=== PATIENT | female | born 1985 | race American Indian/Alaskan Native ===

== ENCOUNTER 2018-03-09 12:07 | Emergency (ER) | payer SELFPAY ==
[2018-03-09] MEDS ORDERED: PERCOCET 5/325 PO ONE (14:27)
--- NOTE | 2018-03-09 14:38 | Emergency Department Report ---
- General Chief complaint: Wound/Laceration Stated complaint: BOIL Time Seen by Provider: 03/09/18 14:04 Source: patient Mode of arrival: Ambulatory Limitations: No Limitations - History of Present Illness Initial comments: 32-year-old -[place] female comes in for complaint of abscess under her right breast that's been there for 3-4 days. Patient reports her pain is 8 out of 10. She reports that she is diabetic and also requesting a refill on her metformin. complaint: abscess/boil -: days(s) (3-4 ) Location: chest (under right breast) Severity: severe Severity scale (0 -10): 8 Quality: burning, stabbing Consistency: constant Improves with: none Worsens with: none Associated symptoms: denies other symptoms Treatments Prior to Arrival: none - Related Data Previous Rx's Medication Instructions Recorded Last Taken Type Clindamycin [Clindamycin CAP] 300 mg PO Q8H #30 cap 03/09/18 Unknown Rx Ibuprofen [Motrin 800 MG tab] 800 mg PO Q8HR PRN #30 tablet 03/09/18 Unknown Rx Levofloxacin [Levaquin TAB] 500 mg PO QDAY #7 tablet 03/09/18 Unknown Rx Metformin HCl 1,000 mg PO BID #60 tablet 03/09/18 Unknown Rx Allergies Allergy/AdvReac Type Severity Reaction Status Date / Time No Known Allergies Allergy Unverified 03/09/18 12:32 Abscess Boil HPI - HPI Chief Complaint: Wound/Laceration Stated Complaint: BOIL Time Seen by Provider: 03/09/18 14:04 Home Medications: Previous Rx's Medication Instructions Recorded Last Taken Type Clindamycin [Clindamycin CAP] 300 mg PO Q8H #30 cap 03/09/18 Unknown Rx Ibuprofen [Motrin 800 MG tab] 800 mg PO Q8HR PRN #30 tablet 03/09/18 Unknown Rx Levofloxacin [Levaquin TAB] 500 mg PO QDAY #7 tablet 03/09/18 Unknown Rx Metformin HCl 1,000 mg PO BID #60 tablet 03/09/18 Unknown Rx Allergies/Adverse Reactions: Allergies Allergy/AdvReac Type Severity Reaction Status Date / Time No Known Allergies Allergy Unverified 03/09/18 12:32 ED Review of Systems ROS: Stated complaint: BOIL Other details as noted in HPI Constitutional: denies: chills, fever Eyes: denies: eye pain, eye discharge, vision change ENT: denies: ear pain, throat pain Respiratory: denies: cough, shortness of breath, wheezing Cardiovascular: denies: chest pain, palpitations Endocrine: no symptoms reported Gastrointestinal: denies: abdominal pain, nausea, diarrhea Genitourinary: denies: urgency, dysuria, discharge Musculoskeletal: denies: back pain, joint swelling, arthralgia Skin: lesions (right breast). denies: rash Neurological: denies: headache, weakness, paresthesias Psychiatric: denies: anxiety, depression Hematological/Lymphatic: denies: easy bleeding, easy bruising ED Past Medical Hx - Past Medical History Hx Diabetes: Yes Additional medical history: multiple cyst - Surgical History Past Surgical History?: No - Social History Smoking Status: Former Smoker - Medications Home Medications: Home Medications Medication Instructions Recorded Confirmed Last Taken Type Clindamycin [Clindamycin CAP] 300 mg PO Q8H #30 cap 03/09/18 Unknown Rx Ibuprofen [Motrin 800 MG tab] 800 mg PO Q8HR PRN #30 tablet 03/09/18 Unknown Rx Levofloxacin [Levaquin TAB] 500 mg PO QDAY #7 tablet 03/09/18 Unknown Rx Metformin HCl 1,000 mg PO BID #60 tablet 03/09/18 Unknown Rx ED Physical Exam - General Limitations: No Limitations General appearance: alert, in no apparent distress - Head Head exam: Present: atraumatic, normocephalic - Eye Eye exam: Present: normal appearance - ENT ENT exam: Present: mucous membranes moist - Neck Neck exam: Present: normal inspection - Respiratory Respiratory exam: Present: normal lung sounds bilaterally. Absent: respiratory distress - Cardiovascular Cardiovascular Exam: Present: tachycardia, other (right breast under nipple swelling tenderness and erythematous.) - GI/Abdominal GI/Abdominal exam: Present: soft, normal bowel sounds - Extremities Exam Extremities exam: Present: normal inspection - Back Exam Back exam: Present: normal inspection - Neurological Exam Neurological exam: Present: alert, oriented X3 - Psychiatric Psychiatric exam: Present: normal affect, normal mood - Skin Skin exam: Present: warm, dry, intact, normal color. Absent: rash ED Course Vital Signs 03/09/18 03/09/18 03/09/18 12:33 14:37 16:05 Temperature 99.1 F Pulse Rate 107 H 74 74 Respiratory 18 16 16 Rate Blood Pressure 162/100 Blood Pressure 201/98 129/66 [Left] O2 Sat by Pulse 99 96 100 Oximetry - I & D Right Breast Type of Procedure: Simple Site: under right breast Blade Size: 16 I & D Procedure: betadine prep, sterile drapes applied, sterile dressing applied Progress: Tolerated procedure well ED Medical Decision Making - Medical Decision Making Assessment evaluated by this provider fast track. I discussed the patient that I would do an incision and drain in place for antibiotics. Patient is to follow -up with primary care provider. I also discussed the patient I'll refill her metformin for 30 days. Patient verbalized understanding. Critical care attestation.: If time is entered above; I have spent that time in minutes in the direct care of this critically ill patient, excluding procedure time. ED Disposition Clinical Impression: Cellulitis of left breast, Abscess of breast Disposition: - TO HOME OR SELFCARE Is pt being admited?: No Does the pt Need Aspirin: No Condition: Stable Instructions: Cellulitis (ED) Additional Instructions: Please complete antibiotics as prescribed. Please take your hyperglycemic medication as prescribed. Please follow up with her primary care provider for further evaluation. Prescriptions: Clindamycin [Clindamycin CAP] 300 mg PO Q8H #30 cap Ibuprofen [Motrin 800 MG tab] 800 mg PO Q8HR PRN #30 tablet PRN Reason: Pain Levofloxacin [Levaquin TAB] 500 mg PO QDAY #7 tablet Metformin HCl 1,000 mg PO BID #60 tablet Referrals: PRIMARY CARE, [Primary Care Provider] - 3-5 Days Forms: Work/School Release Form(ED)
[2018-03-09 16:05] VITALS: BP 129/66
== END 2018-03-09 16:05 | disposition home or self-care (01) ==
LOC: ED 12:07
DX: N61.1 Abscess of the breast and nipple (principal); E11.9 Type 2 diabetes mellitus without complications; Z87.891 Personal history of nicotine dependence
CPT/HCPCS: 82962; 87076; 87116; 87186